=== PATIENT | female | born 1985 | race Caucasian/White ===

== ENCOUNTER 2022-03-13 01:06 | Emergency (ER) | payer OTHER ==
[~2022-03-13] VITALS: Ht 157.5 cm; Wt 78.0 kg
[~2022-03-13 01:06] MED LIST: DECON-A LIQUID118 ML PO; DOLOGEN CAPLET1 EACH PO; ORPH100T PO; PEPCID40 MG PO; PHENERGAN25 MG PO; PROGESTERONE200 MG; ZITHROMAX TRI-500 MG PO; ZOFRAN ODT8 MG/UDTAB
[2022-03-13] MEDS ORDERED: DILTIAZEM ER120 MG (01:18)
== END 2022-03-13 08:18 | disposition home or self-care (01) ==
LOC: ER 01:06
DX: K52.9 Noninfective gastroenteritis and colitis, unspecified (principal)